=== PATIENT | male | born 1980 | race Caucasian/White ===

== ENCOUNTER 2017-02-02 10:36 | Emergency (ER) | payer BC, OTHER ==
[2017-02-02 11:11] VITALS: BP 126/88; PULSE 99; RESP 18; TEMP 98; O2SAT 99
--- NOTE | 2017-02-02 12:56 | ED PDOC ---
Lower Extremity Pain/Injury Time Seen by Provider: 02/02/17 11:33 Chief Complaint (Nursing): Lower Extremity Problem/Injury Chief Complaint (Provider): Left knee pain, swelling after playing basketball History Per: Patient History/Exam Limitations: no limitations Onset/Duration Of Symptoms: Hrs Current Symptoms Are (Timing): Still Present Severity: Moderate Pain Scale Rating Of: 6 Additional Complaint(s): No relief with aleve at home. Pt reports similar in the right knee but it resolved. Pt denies acute incident and states it gradually began to have pain and swell. Past Medical History Reviewed: Historical Data, Nursing Documentation, Vital Signs Vital Signs: Last Vital Signs Temp 98 F 02/02/17 11:08 Pulse 99 H 02/02/17 11:08 Resp 18 02/02/17 11:08 BP 126/88 02/02/17 11:08 Pulse Ox 99 02/02/17 11:08 - Medical History PMH: Diabetes Denies: Chronic Kidney Disease - Family History Family History: States: Unknown Family Hx - Living Arrangements Living Arrangements: With Family - Social History Current smoker - smoking cessation education provided: Yes Alcohol: Occasional - Home Medications Home Medications: Ambulatory Orders Medication Instructions Recorded Amoxicillin/Potassium Clav 1 each PO Q12 #28 tablet 09/23/15 [Augmentin 875-125 Tablet] Atorvastatin [Lipitor] 10 mg PO DAILY #0 tab 09/23/15 GlipiZIDE [Glucotrol] 10 mg PO BIDAC #0 tab 09/23/15 Insulin Detemir [Levemir] 16 units SC HS #0 vial 09/23/15 Mupirocin 2% Ointment [Bactroban 1 applic TOP TID #0 tube 09/23/15 Ointment] Uzsrd-[id number]-Ltza Ethyl Esters 1 GM 1 gm PO BID #0 sgl 09/23/15 [Lovaza] SITagliptin [Januvia] 100 mg PO DAILY #0 tab 09/23/15 metFORMIN [glucOPHAGE] 850 mg PO BIDWM #0 tab 09/23/15 traMADol [Ultram] 50 mg PO Q6H PRN #15 tab 02/02/17 - Allergies Allergies/Adverse Reactions: Allergies Allergy/AdvReac Type Severity Reaction Status Date / Time shellfish derived AdvReac SWELLING Verified 09/16/15 17:52 Review of Systems ROS Statement: Except As Marked, All Systems Reviewed And Found Negative Constitutional: Negative for: Fever, Chills Musculoskeletal: Positive for: Other (Left knee pain and swelling ) Skin: Negative for: Bruising Physical Exam - Reviewed Nursing Documentation Reviewed: Yes Vital Signs Reviewed: Yes - Physical Exam Appears: Positive for: Well, Non-toxic, No Acute Distress Head Exam: Positive for: ATRAUMATIC, NORMAL INSPECTION, NORMOCEPHALIC Skin: Positive for: Warm. Negative for: Normal Color (No ecchymosis ) Eye Exam: Positive for: Normal appearance ENT: Positive for: Normal ENT Inspection Neck: Positive for: Normal, Painless ROM Respiratory: Negative for: Accessory Muscle Use, Respiratory Distress Pulses-Post. Tibialis (L): 2+ Pulses-Post. Tibialis (R): 2+ Gastrointestinal/Abdominal: Positive for: Soft Back: Positive for: Normal Inspection Extremity: Positive for: Normal ROM, Swelling (Significant left knee edema ). Negative for: Tenderness, Deformity Neurologic/Psych: Positive for: Alert, Oriented - ECG O2 Sat by Pulse Oximetry: 99 Medical Decision Making Medical Decision Making: Knee x-ray without acute findings. (+) degenerative changes Disposition - Clinical Impression Clinical Impression: Left knee injury - Patient ED Disposition Is Patient to be Admitted: No Counseled Patient/Family Regarding: Diagnosis, Need For Followup, Rx Given - Disposition Disposition: Routine/Home Disposition Time: 12:54 Condition: GOOD Prescriptions: traMADol [Ultram] 50 mg PO Q6H PRN #15 tab PRN Reason: Pain Instructions: Knee Pain (ED) Forms: [facility] (Albanian), [facility] ED School/Work Excuse
--- NOTE | 2017-02-02 14:35 | RAD ---
PROCEDURE: Left Knee Radiographs. HISTORY: Pain. COMPARISON: None. FINDINGS: BONES: No fracture or destructive bony lesions appreciated. Prepatellar soft tissue edema is however identified. Calcific changes seen the plane of the patellar tendon suspicious for calcific tendinopathy. Calcifications at the superior knee soft tissues separate from the quadriceps tendon complex however appear nonspecific JOINTS: Tricompartmental degenerative changes are primarily manifest by joint space narrowing, cortical sclerosis and osteophyte development with the patellofemoral articulations seen to be the worst joint cavity noted above. JOINT EFFUSION: None. OTHER FINDINGS: None. IMPRESSION: Significant tricompartmental left knee degenerative joint disease as described above, seen worst at the patellofemoral articulation. No acute fracture or dislocation identified.
== END 2017-02-02 13:49 | disposition home or self-care (01) ==
LOC: H.ER 10:36
DX: S89.92XA Unspecified injury of left lower leg, initial encounter (principal); X50.9XXA Other and unspecified overexertion or strenuous movements or postures, initial encounter; Y93.67 Activity, basketball; E11.9 Type 2 diabetes mellitus without complications; Z79.4 Long term (current) use of insulin

== ENCOUNTER 2017-03-16 09:14 | Day surgery (SDC) | payer OTHER ==
[2017-03-11 14:37] VITALS: BMI 32.5
[2017-03-16] MEDS ORDERED: Midazolam 2 MG/2 ML VIAL ONE (10:28)
[2017-03-16] MEDS ORDERED: Lidocaine 1% 5ml Abboject IV ONE (10:28)
[2017-03-16] MEDS ORDERED: Propofol 10 mg/ml Inj (20 ML) ONE (10:28)
[2017-03-16] MEDS ORDERED: Thrombin Topical 5,000 Int Units Spray Kit ONE (10:32)
[2017-03-16] MEDS ORDERED: Absorbable Gelatin Sponge Size 100 ONE (10:32)
[2017-03-16] MEDS ORDERED: Bupivacaine 0.5% Inj(30mL) ONE (10:32)
[2017-03-16] MEDS ORDERED: Bacitracin Ointment 30 GM TUBE ONE (10:32)
[2017-03-16] MEDS ORDERED: ceFAZolin IV 1 gm in Dextrose 2 GM/100 ML BAG IVPB ONE (10:32)
[2017-03-16] MEDS ORDERED: Ropivacaine 0.5% 30ML IV ONE (10:35)
[2017-03-16] MEDS ORDERED: Lactated Ringer's 1,000 ML IV ONE (11:00)
[2017-03-16] MEDS ORDERED: HYDROmorphone 0.5 mg/0.5 ml ISec IVP PRN (12:59)
[2017-03-16] MEDS ORDERED: Sodium Chloride 0.9% 1,000 ML IV ONE (12:59)
[2017-03-16] MEDS ORDERED: Sodium Chloride 0.9% 1,000 ML IV SCH (13:00)
--- NOTE | 2017-03-16 13:12 | PCM.ANESB3 ---
Femoral Nerve Block - Femoral Nerve Block Date of Procedure: 03/16/17 Anesthesiologist: Dr. Henderson Pre-Procedure Diagnosis: S/P left quadricep tendon repair Post-Procedure Diagnosis: S/P left quadricep tendon repair Procedure Performed: Femoral Nerve Block Left - Procedure Femoral Nerve Block: The procedure was explained to the patient that it is for the post-operative pain management. Consent was obtained after a thorough discussion with the patient regarding the benefits and possible complications of local anesthetic block of the femoral nerve at the inguinal crease area. The patient was brought to the operating room and standard monitors were applied. Time-out was held with the circulating nurse to confirm the correct/appropriate block. After the surgery while still under general anesthesia, patient in supine position with fully extended lower extremities and the left groin exposed. The femoral artery was then carefully palpated. The ultrasound transducer was then applied to this area in the transverse plane and the femoral nerve was visualized lateral to the femoral artery and underneath the fascia iliaca. After thorough identification, the inguinal crease area was prepped with Chloraprep solution. At this point, a #22 gauge Stimuplex 2-inch needle was inserted immediately lateral to the femoral artery pulse at the inguinal crease and advanced perpendicularly. The needle was inserted to the ultrasound transducer in-plane towards the femoral nerve in a [id number] direction. Needle advancement was performed carefully under direct ultrasound visualization. Nerve stimulator was used and twitch of the quadriceps muscle was obtained at current of 0.3MA. After negative aspiration, 5cc of 0.5% Ropivacaine was injected and this was followed with 25cc of 0.5% Ropivacaine. Under ultrasound guidance the local anesthetics were observed spreading below fascia iliaca and around the femoral nerve. The needle was removed intact and sterile dressing was applied. The patient had stable vital signs, was in no apparent distress. The patient tolerated the femoral nerve block well with stable vital signs and was awaken from anesthesia. Then transported to PACU.
--- NOTE | 2017-03-16 14:07 | PCM.SURG1 ---
Surgeon's Initial Post Op Note - Surgeon's Notes Surgeon: Brenda Brewster MD Implementation Director: Hernandez Cooley MD Type of Anesthesia: General Endo Pre-Operative Diagnosis: Left knee quads tendon rupture Operative Findings: see op report Post-Operative Diagnosis: same as pre-op dx Operation Performed: Left knee quads tendon repair Specimen/Specimens Removed: none Estimated Blood Loss: EBL {In ML}: 20 Date of Surgery/Procedure: 03/16/17 Time of Surgery/Procedure: 12:00
[2017-03-16] MEDS ORDERED: Oxycodone/Acetaminophen 5/325 mg Tab PO PRN (14:10)
--- NOTE | 2017-03-16 15:49 | OP ---
PROCEDURE DATE: 03/16/2017 ATTENDING PHYSICIAN: Brenda Brewster MD. TUBE KNITTER: Hernandez Cooley MD. PREOPERATIVE DIAGNOSES: 1. Left knee complete quadriceps tendon tear. 2. Left knee complete retinacular tear. POSTOPERATIVE DIAGNOSES: 1. Left knee complete quadriceps tendon tear. 2. Left knee complete retinacular tear. PROCEDURES: 1. Left knee open quadriceps tendon repair. 2. Debridement of soft tissue and the bone. 3. Repair of the retinaculum. TYPE OF ANESTHESIA: General. ESTIMATED BLOOD LOSS: 30 mL. SPECIMEN: None. COMPLICATIONS: None. HISTORY: The patient is a 36-year-old male who had an injury to his left knee. The patient was seen in the emergency room and seen in my office. An MRI was ordered which showed a complete quadriceps tendon tear without significant retraction. At that point, I reviewed different options with the patient, both operative and nonoperative and reviewed risks and benefits of both options with the patient. The patient opted to proceed with a surgical treatment of open quadriceps tendon repair, debridement of bone and soft tissue, and all indicated procedures. The risks included but not limited to bleeding, infection, neurovascular damage, continued pain, failure of repair, stiffness, need for further surgery among others. The patient fully understood the risks and benefits and opted to proceed with the surgery. DESCRIPTION OF PROCEDURE: On the day of the surgery, patient was admitted to preop holding area. A laterality sheet was completed, confirming patient's left knee to be the correct operative site. Informed consent was signed from the patient explaining the risks and benefits once again and left knee was marked. Afterwards, patient was brought into operating room table. He underwent general anesthesia. A padded tourniquet was applied to the patient's thigh. The left knee was draped and prepped in the standard sterile manner. Appropriate time-out was completed confirming left knee to be the correct operative site. Esmarch was used to exsanguinate the extremity and tourniquet was inflated to 350 mmHg. Using a 10 blade, a 5 cm incision was made proximal to the superior pole of the patella. Skin dissection was taken down. There was extensive hematoma and soft tissue injury. The soft tissue was debrided from the superior pole of the patella. There was also debridement of the bone from the superior pole of the patella that was also dissected and removed in order to augment the healing. Next, the torn degenerative edges of the quad tendon were also debrided and removed. For fixation, we used Arthrex FiberTape. Two FiberTapes were ran in a Krackow fashion . For fixation, we used 2 Arthrex 4.75 SwiveLock anchors, which were placed in superior pole of the patella and the tendon was repaired back down to superior pole. Next, the retinaculum was closed using heavy #2 FiberWire sutures. The knee was taken through range of motion and there was a tension-free repair until 50 degrees of flexion. The wound was copiously irrigated. All the loose bodies were removed. The skin was closed with 2-0 Vicryl and herminio. The patient was placed in a postoperative brace. Postoperative brace instructions were to remain weightbearing as tolerated with brace strictly locked in extension. Next, the patient was extubated. He was transferred to a stretcher and taken to recovery room. There were no complications of surgery. Dr. Hernandez Cooley is a board certified orthopedic surgeon who was present for the entirety of the case as his participation was crucial in patient positioning, skin dissection, retraction of critical neurovascular structures, and successful completion of the surgery. Brenda Brewster MD
[2017-03-16 16:10] VITALS: RESP 18
[2017-03-16 18:52] VITALS: BP 130/80; PULSE 90; TEMP 98; O2SAT 99
== END 2017-03-16 18:57 | disposition home or self-care (01) ==
LOC: H.OPSURG 09:14
PROVIDERS: ATTEND Orthopaedic Surgery
DX: M66.252 Spontaneous rupture of extensor tendons, left thigh (principal); M25.462 Effusion, left knee; S76.112A Strain of left quadriceps muscle, fascia and tendon, initial encounter; X58.XXXA Exposure to other specified factors, initial encounter
CPT/HCPCS: 11044; 13121; 82948; 88305; 97116; 97161; G8978; G8979; G8980; J0690; J1170; J1885; J2250; J2704; J3010; J7040; J7120

== ENCOUNTER 2017-03-31 21:30 | Emergency (ER) | payer OTHER ==
[2017-03-31 21:31] VITALS: BMI 32.5
[2017-03-31 21:36] VITALS: BP 139/87; PULSE 117; RESP 16; TEMP 98; O2SAT 100
--- NOTE | 2017-03-31 22:03 | ED PDOC ---
HPI: General Adult Time Seen by Provider: 03/31/17 21:45 Chief Complaint (Nursing): Abnormal Skin Integrity Chief Complaint (Provider): R groin abscess History Per: Patient History/Exam Limitations: no limitations Onset/Duration Of Symptoms: Days (today) Additional Complaint(s): Pt. wiped his groin on the right and noted some purulent dc. No pain. No testicular pain, abd pain, nausea, vomit, diarrhea. No weakness. No back pain , fever, chills. Has had same in the past, same area. Past Medical History Reviewed: Nursing Documentation, Vital Signs Vital Signs: Last Vital Signs Temp 98.0 F 03/31/17 21:33 Pulse 117 H 03/31/17 21:33 Resp 16 03/31/17 21:33 BP 139/87 03/31/17 21:33 Pulse Ox 100 03/31/17 21:33 - Medical History PMH: Diabetes Denies: Chronic Kidney Disease - Surgical History Other surgeries: knee surgery - Family History Family History: States: Unknown Family Hx - Home Medications Home Medications: Ambulatory Orders Medication Instructions Recorded Aspirin [Aspirin] 1 mg PO DAILY 03/16/17 Docusate [Colace] 100 mg PO DAILY PRN 03/16/17 Naproxen Sodium [Aleve] 220 mg PO PRN PRN 03/16/17 Ondansetron [Zofran] 8 mg PO Q8 PRN 03/16/17 oxyCODONE/Acetaminophen [Percocet 1 mg PO Q6 PRN 03/16/17 5/325 mg Tab] traMADol [Ultram] 50 mg PO PRN PRN 03/16/17 Clindamycin [Cleocin] 300 mg PO QID 7 Days cap 03/31/17 - Allergies Allergies/Adverse Reactions: Allergies Allergy/AdvReac Type Severity Reaction Status Date / Time shellfish derived AdvReac SWELLING Verified 03/31/17 21:33 cats Allergy HIVES Uncoded 03/31/17 21:33 Review of Systems Constitutional: Negative for: Fever, Weakness, Malaise Cardiovascular: Negative for: Chest Pain Respiratory: Negative for: Shortness of Breath Gastrointestinal: Negative for: Nausea, Vomiting Genitourinary Male: Negative for: Frequency, Penile Discharge, Scrotal Pain, Penile Pain Skin: Positive for: Rash Neurological: Negative for: Weakness Physical Exam - Reviewed Nursing Documentation Reviewed: Yes Vital Signs Reviewed: Yes - Physical Exam Appears: Positive for: Non-toxic, No Acute Distress Neck: Positive for: Normal, Painless ROM Cardiovascular/Chest: Positive for: Regular Rate, Rhythm Respiratory: Positive for: CNT, Normal Breath Sounds Gastrointestinal/Abdominal: Positive for: Normal Exam, Bowel Sounds, Soft. Negative for: Tenderness Back: Positive for: Normal Inspection. Negative for: L CVA Tenderness, R CVA Tenderness Extremity: Positive for: Other (R knee in brace post op; R groin with open abscess (fluctuant) draining blood. 1cm diameter.). Negative for: Pedal Edema Neurologic/Psych: Positive for: Alert, Oriented - ECG O2 Sat by Pulse Oximetry: 100 Pulse Ox Interpretation: Normal - Progress ED Course And Treament: 2004: Stable. AAOx3. Blood drained and abscess size reduced. Pt. to fu with pcp. Abscess opened. Rx clinda. Has pain meds at home. Disposition - Clinical Impression Clinical Impression: Abscess - Patient ED Disposition Is Patient to be Admitted: No Counseled Patient/Family Regarding: Diagnosis, Need For Followup, Rx Given - Disposition Referrals: [facility] [Outside] - 04/01/17 Disposition: Routine/Home Disposition Time: 22:06 Condition: FAIR Additional Instructions: Return if not better in 3 days. Prescriptions: Clindamycin [Cleocin] 300 mg PO QID 7 Days cap Instructions: Abscess (ED)
== END 2017-03-31 22:28 | disposition home or self-care (01) ==
LOC: H.ER 21:30
DX: L02.214 Cutaneous abscess of groin (principal)